=== PATIENT | female | born 1975 | race Caucasian/White ===

== ENCOUNTER 2016-03-12 08:18 | Emergency (ER) | payer MEDICAID ==
[~2016-03-12] VITALS: Ht 172.7 cm; Wt 99.8 kg
[2016-03-12 08:33] VITALS: BP 127/79
== END 2016-03-12 10:19 | disposition home or self-care (01) ==
LOC: ER 08:21
DX: M25.521 Pain in right elbow (principal); D68.51 Activated protein C resistance; Z86.718 Personal history of other venous thrombosis and embolism; Z88.5 Allergy status to narcotic agent
CPT/HCPCS: 73080; 93971; 99284; A4606; Z7610